=== PATIENT | male | born 1980 | race Caucasian/White ===

== ENCOUNTER 2018-02-12 15:26 | Emergency (ER) | payer OTHER ==
[2018-02-12] MEDS ORDERED: ASPIRIN 81 MG TABLET, CHEWABLE PO ONE (16:16)
--- NOTE | 2018-02-12 16:17 | ER Document Report ---
ED Medical Screen (RME) - General Chief Complaint: Chest Pain Stated Complaint: CHEST PAIN Time Seen by Provider: 02/12/18 16:06 TRAVEL OUTSIDE OF THE [place] IN LAST 30 DAYS: No - Related Data Allergies/Adverse Reactions: No Known Allergies Allergy (Verified 02/12/18 16:06) Past Medical History - Social History Chew tobacco use (# tins/day): No Frequency of alcohol use: None Drug Abuse: None Renal/ Medical History: Denies: Hx Peritoneal Dialysis Physical Exam - Vital signs Vitals: Temp Pulse Resp BP Pulse Ox 98.0 F 72 14 130/77 H 95 02/12/18 15:36 02/12/18 15:36 02/12/18 15:36 02/12/18 15:36 02/12/18 15:36 Course - Re-evaluation Re-evalutation: 02/12/18 16:16 37-year-old man with borderline hypertension borderline cholesterol as well as blood sugar that [facility]. He has had persistent chest pain through the day he has had several episodes of this in the past. I have seen and performed a rapid medical screening examination on this patient. This patient will require further evaluation and disposition determination by a secondary provider. - Vital Signs Vital signs: Temp Pulse Resp BP Pulse Ox 98.0 F 72 14 130/77 H 95 02/12/18 15:36 02/12/18 15:36 02/12/18 15:36 02/12/18 15:36 02/12/18 15:36
--- NOTE | 2018-02-12 16:50 | RADIOLOGY REPORT (SQ) ---
EXAM DESCRIPTION: CHEST SINGLE VIEW COMPLETED DATE/TIME: 02/12/2018 4:40 pm REASON FOR STUDY: chest pain COMPARISON: None. EXAM PARAMETERS: NUMBER OF VIEWS: One view. TECHNIQUE: Single frontal radiographic view of the chest acquired. RADIATION DOSE: NA LIMITATIONS: None. FINDINGS: LUNGS AND PLEURA: No opacities, masses or pneumothorax. No pleural effusion. MEDIASTINUM AND HILAR STRUCTURES: No masses. Contour normal. HEART AND VASCULAR STRUCTURES: Heart normal in size. Normal vasculature. BONES: No acute findings. HARDWARE: None in the chest. OTHER: No other significant finding. IMPRESSION: NO ACUTE RADIOGRAPHIC FINDING IN THE CHEST. TECHNICAL DOCUMENTATION: JOB ID: [id number] [employer]- All Rights Reserved Reading location - IP/workstation name: [email or web address]
[2018-02-12 17:10] LABS: ABSOLUTE BASOPHILS # (AUTO) 0.1 10^3/uL (0.0-0.2); ABSOLUTE EOSINOPHILS # (AUTO) 0.3 10^3/uL (0.0-0.6); ABSOLUTE LYMPHOCYTES (AUTO) 1.7 10^3/uL (0.5-4.7); ABSOLUTE MONOCYTES (AUTO) 0.5 10^3/uL (0.1-1.4); BASOPHILS % (AUTO) 1.3 % (0-2); EOSINOPHILS % (AUTO) 4.6 % (0-6); HEMATOCRIT 44.1 % (37.9-51.0); HEMOGLOBIN 15.4 g/dL (13.5-17.0); LYMPHOCYTES % (AUTO) 30.9 % (13-45); MEAN CORPUSCULAR HEMOGLOBIN 29.2 pg (27.0-33.4); MEAN CORPUSCULAR VOLUME 83 fl (80-97); MONOCYTES % (AUTO) 9.2 % (3-13); PLATELET COUNT 311 10^3/uL (150-450); RED BLOOD COUNT 5.29 10^6/uL (4.35-5.55); RED CELL DISTRIBUTION WIDTH 13.5 % (11.5-14.0); TOTAL CELLS COUNTED % (AUTO) 100 %; WHITE BLOOD COUNT 5.6 10^3/uL (4.0-10.5)
[2018-02-12 17:27] LABS: ALANINE AMINOTRANSFERASE 61 U/L (21-72); ALBUMIN 4.8 g/dL (3.5-5.0); ALKALINE PHOSPHATASE 76 U/L (38-126); ANION GAP 14 (5-19); ASPARTATE AMINO TRANSFERASE 51 U/L (17-59); BILIRUBIN,DIRECT 0.3 mg/dL (0.0-0.4); BILIRUBIN,TOTAL 0.5 mg/dL (0.2-1.3); BLOOD UREA NITROGEN 18 mg/dL (7-20); CALCIUM 10.2 mg/dL (8.4-10.2); CARBON DIOXIDE 30 mmol/L (22-30); CHLORIDE 101 mmol/L (98-107); CREATINE KINASE 145 U/L (55-170); GLUCOSE 78 mg/dL (75-110); POTASSIUM 4.4 mmol/L (3.6-5.0); SODIUM 144.6 mmol/L (137-145)
[2018-02-12 17:39] LABS: CREATINE KINASE MB 1.04 ng/mL (<4.55); TROPONIN I < 0.012 ng/mL
--- NOTE | 2018-02-12 18:35 | EKG REPORT ---
SEVERITY:- NORMAL ECG - SINUS RHYTHM : Confirmed by: Pablo Guzman MD 12-Feb-2018 18:35:21
--- NOTE | 2018-02-12 21:26 | ER Document Report ---
ED Cardiac - General Chief Complaint: Chest Pain Stated Complaint: CHEST PAIN Time Seen by Provider: 02/12/18 16:06 Mode of Arrival: Ambulatory Information source: Patient TRAVEL OUTSIDE OF THE [place] IN LAST 30 DAYS: No - HPI Patient complains to provider of: Chest pain Was the onset of pain: Sudden Is the pain a: New problem Chest pain location: Substernal Quality of pain: Heaviness Severity now: None Severity at worst: Moderate Chest pain precipitating factors: At Rest Cardiac risk factors: None Associated symptoms: Palpitations Exacerbated by: Denies Relieved by: Nothing Notes: 37-year-old male with no past medical history presenting to the emergency room today complaining of intermittent chest pain is heavy in nature and last approximately 5 minutes, resolves without any intervention, it is midsternal and just left of the sternum, he reports associated palpitations at times but denies shortness of breath, no aggravating or alleviating symptoms, symptoms started this evening after eating a quesadilla, he states he is had similar symptoms in the past intermittently, he denies any increased with any activity, he does not smoke - Related Data Allergies/Adverse Reactions: No Known Allergies Allergy (Verified 02/12/18 16:06) Past Medical History - General Information source: Patient - Social History Smoking Status: Never Smoker Chew tobacco use (# tins/day): No Frequency of alcohol use: None Drug Abuse: None Family History: Reviewed & Not Pertinent Patient has suicidal ideation: No Patient has homicidal ideation: No Renal/ Medical History: Denies: Hx Peritoneal Dialysis Review of Systems - Review of Systems Constitutional: No symptoms reported EENT: No symptoms reported Cardiovascular: Chest pain, Palpitations Respiratory: No symptoms reported Gastrointestinal: No symptoms reported Genitourinary: No symptoms reported Male Genitourinary: No symptoms reported Musculoskeletal: No symptoms reported Skin: No symptoms reported Hematologic/Lymphatic: No symptoms reported Neurological/Psychological: No symptoms reported -: Yes All other systems reviewed and negative Physical Exam - Vital signs Vitals: Temp Pulse Resp BP Pulse Ox 98.0 F 72 14 130/77 H 95 02/12/18 15:36 02/12/18 15:36 02/12/18 15:36 02/12/18 15:36 02/12/18 15:36 Interpretation: Normal - General General appearance: Appears well, Alert - HEENT Head: Normocephalic, Atraumatic Eyes: Normal Pupils: PERRL - Respiratory Respiratory status: No respiratory distress Chest status: Nontender Breath sounds: Normal Chest palpation: Normal - Cardiovascular Rhythm: Regular Heart sounds: Normal auscultation Murmur: No - Abdominal Inspection: Normal Distension: No distension Bowel sounds: Normal Tenderness: Nontender Organomegaly: No organomegaly - Back Back: Normal, Nontender - Extremities General upper extremity: Normal inspection, Nontender, Normal color, Normal ROM , Normal temperature General lower extremity: Normal inspection, Nontender, Normal color, Normal ROM , Normal temperature, Normal weight bearing. No: Neo's sign - Neurological Neuro grossly intact: Yes Cognition: Normal Orientation: AAOx4 Shiv Coma Scale Eye Opening: Spontaneous Shiv Coma Scale Verbal: Oriented Shiv Coma Scale Motor: Obeys Commands Peever Coma Scale Total: 15 Speech: Normal Motor strength normal: LUE, RUE, LLE, RLE Sensory: Normal - Psychological Associated symptoms: Normal affect, Normal mood - Skin Skin Temperature: Warm Skin Moisture: Dry Skin Color: Normal Course - Re-evaluation Re-evalutation: 02/13/18 01:20 Patient is a healthy 37-year-old male with no risk factors for heart disease presenting for complaints of intermittent chest pain lasting a proximally 5 minutes at a time and going on for the past few days, evaluation in the emergency department is unremarkable including EKG, chest x-ray and labs with a negative troponin, therefore patient was discharged home with instructions for follow-up and advised to return if any additional concerns, patient acknowledges understanding and agreement with this plan - Vital Signs Vital signs: Temp Pulse Resp BP Pulse Ox 98.0 F 72 21 H 122/91 H 100 02/12/18 15:36 02/12/18 15:36 02/12/18 21:37 02/12/18 21:37 02/12/18 21:37 - Laboratory Result Diagrams: 02/12/18 16:56 02/12/18 16:56 - Diagnostic Test Radiology reviewed: Image reviewed, Reports reviewed - EKG Interpretation by Me EKG shows normal: Sinus rhythm Rate: Normal Rhythm: NSR Discharge - Discharge Clinical Impression: Chest pain Qualifiers: Chest pain type: unspecified Qualified Code(s): R07.9 - Chest pain, unspecified Condition: Stable Disposition: HOME, SELF-CARE Instructions: Chest Pain of Unclear Cause ([facility]) Additional Instructions: Follow up with your primary care provider or petrologist in one to 2 days. Return to the emergency room immediately if symptoms worsen or any additional concerns. Referrals: SARAH BROWNING MD [ACTIVE STAFF] - Follow up as needed
[2018-02-12 21:48] VITALS: BP 122/91
== END 2018-02-12 21:46 | disposition home or self-care (01) ==
LOC: ER 15:26
DX: R07.9 Chest pain, unspecified (principal); R00.2 Palpitations
CPT/HCPCS: 36415; 71045; 80053; 82550; 82553; 84484; 85025; 93005; 93010; 99285